=== PATIENT | male | born 1945 | race Caucasian/White ===

== ENCOUNTER → 2019-11-27 | Outpatient (CLI) | payer BC, MEDICARE, OTHER ==
[~2019-11-27] MED LIST: CATHETER FLUSH 10 ML SYR IV PRN; MULT-178 PO; REGADENOSON 0.4 MG/5 ML SYR (LEXISCAN) IV ONE
[2019-11-27] MEDS: CATHETER FLUSH 10 ML SYR IV PRN ×2 (07:57→09:25)
[2019-11-27 09:23] VITALS: BP 148/80
--- NOTE | 2019-11-27 15:31 | STRESS TEST ---
DATE OF SERVICE: 11/27/2019 RESTING AND POST REGADENOSON TECHNETIUM-99M TETROFOSMIN SPECT IMAGING ORDERING PHYSICIAN: Migdalia Hong APRN PRIMARY PHYSICIAN: Dr. Clay. OTHER PHYSICIAN: Dr. Spencer. CLINICAL DIAGNOSES: Coronary artery disease. Baseline images were carried out after injection of 10.2 mCi of technetium-99m Tetrofosmin. This was followed by 0.4 mg regadenoson and 29.3 mCi of technetium-99m Tetrofosmin for stress imaging. The electrocardiogram showed sinus rhythm at baseline. It did not change significantly with the regadenoson infusion. Isolated premature atrial contractions were seen. Review of images at rest and following stress indicates a small predominantly fixed basal inferior perfusion defect. Gated images show well preserved global left ventricular systolic function without distinct regional wall motion abnormality. Left ventricular ejection fraction is calculated to be 62%. Left ventricular end diastolic volume is 57 mL. TID is absent (1.01). CONCLUSIONS: 1. 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 2. Well preserved global left ventricular systolic function without distinct regional wall motion abnormality and with a calculated ejection fraction of 62%. Job ID: [id number] DocumentID: [id number] Dictated Date: 11/27/2019 15:23:12 Integration Developer Date: 11/27/2019 15:31:00 Dictated By: RICHY SPENCER MD, MA, FACP, FACC,
== END ==
LOC: CARD 11-23 07:34
PROVIDERS: ATTEND Nurse Practitioner Family
DX: I25.10 Atherosclerotic heart disease of native coronary artery without angina pectoris (principal); E78.5 Hyperlipidemia, unspecified; I65.29 Occlusion and stenosis of unspecified carotid artery
CPT/HCPCS: 78452; 93017; A9502

== ENCOUNTER 2020-03-04 10:55 | Outpatient (RCR) | payer MEDICARE, OTHER ==
[~2020-03-04 10:55] MED LIST changes: -CATHETER FLUSH 10 ML SYR IV PRN; -REGADENOSON 0.4 MG/5 ML SYR (LEXISCAN) IV ONE
[2020-03-11] MEDS ORDERED: LANS30CA PO (10:44)
[2020-03-11] MEDS ORDERED: METO-333 PO (10:44)
[2020-03-11] MEDS ORDERED: ASPI-479 PO (10:44)
[2020-03-11] MEDS ORDERED: CLOP75TA69 PO (10:44)
[2020-03-11] MEDS ORDERED: ATOR40TA70 PO (10:44)
[2020-03-11] MEDS ORDERED: RIVA20TA PO (10:44)
[2020-03-11] MEDS ORDERED: LORA-404 PO (10:44)
== END 2020-04-28 | disposition home or self-care (01) ==
LOC: ONC 10:55
PROVIDERS: ATTEND Radiology Radiation Oncology
DX: C15.5 Malignant neoplasm of lower third of esophagus (principal)
CPT/HCPCS: 77290; 77295; 77300; 77334 ×2; G0463; 77336; 77417; 99205

== ENCOUNTER → 2020-03-11 | Day surgery (SDC) | payer MEDICARE, OTHER ==
[2020-03-11] VITALS (8 sets, daily range): BP systolic 125–153; BP diastolic 82–92
[~2020-03-11] VITALS: Ht 175 cm; Wt 66.0 kg
[~2020-03-11] MED LIST changes: +ASPI-479 PO; +ATOR40TA70 PO; +CLOP75TA69 PO; +HEParin (CATH LAB) 2,000 ML IV ONE; +HEParin (CENTRAL IV FLUSH) 500 UNIT/5 ML SYR IV ONE; +HEParin (CENTRAL IV FLUSH) 500 UNIT/5 ML SYR ONE; +LANS30CA PO; +LIDOCAINE 1% INJ 20 ML 20 ML VIAL ONE; +LORA-404 PO; +METO-333 PO; +MIDAZOLAM 5 MG/5 ML (VERSED) VIAL ONE; +NS IV 1000 ML 1,000 ML IV SCH; +NS IV 1000 ML 1,000 ML ONE; +PATIENT MAY USE OWN MEDS, ALL PO SCH; +RIVA20TA PO; +fentaNYL INJECTION 100 MCG/2 ML AMP ONE
[2020-03-11 10:28] LABS: HEMOGLOBIN 10.8 g/dL (13.3-17.7); MEAN PLATELET VOLUME 9.2 fL (9.0-12.2); WHITE BLOOD COUNT 8.3 10^3/uL (4.3-11.0)
[2020-03-11 10:40] LABS: INR 1.1 (0.8-1.4); PROTHROMBIN TIME PATIENT 14.4 SEC (12.2-14.7)
[2020-03-11 10:49] LABS: ALANINE AMINOTRANSFERASE 15 U/L (0-55); ALBUMIN 3.7 GM/DL (3.2-4.5); ALKALINE PHOSPHATASE 158 U/L (40-136); BILIRUBIN,TOTAL 0.3 MG/DL (0.1-1.0); BUN/CREATININE RATIO 18; CALCIUM 9.2 MG/DL (8.5-10.1); CARBON DIOXIDE 21 MMOL/L (21-32); CHLORIDE 104 MMOL/L (98-107); CHOLESTEROL 201 MG/DL (< 200); CREATININE SERUM 0.73 MG/DL (0.60-1.30); GFR ESTIMATED > 60; GLUCOSE 101 MG/DL (70-105); HDL CHOLESTEROL 58 MG/DL (40-60); POTASSIUM 3.8 MMOL/L (3.6-5.0); SODIUM 138 MMOL/L (135-145); TOTAL PROTEIN 6.5 GM/DL (6.4-8.2); TRIGLYCERIDES 200 MG/DL (<150); VLDL CHOLESTEROL 40 MG/DL (5-40)
--- NOTE | 2020-03-11 13:40 | Cardiac Procedure Note-CS/ASA ---
Pre-Procedure Note Pre-Op Procedure Note H&P Reviewed The H&P was reviewed, patient examined and no changes noted. Date H&P Reviewed: Mar 11, 2020 Time H&P Reviewed: 12:30 Conscious Sedation Pre-Proced Time 12:30 ASA Score 3 For ASA 3 and 4: Consider anesthesia and medical clearance. Also, for patients with a history of failed moderate sedation consider anesthesia. Airway Lungs Heart ASA score ASA 1: a normal healthy patient ASA 2: a patient with a mild systemic disease (mid diabetes, controlled hypertension, obesity ASA 3: a patient with a severe systemic disease that limits activity (angina, COPD, prior Myocardial infarction) ASA 4: a patient with an incapacitating disease that is a constant threat to life (CHF, renal failure) ASA 5: a moribund patient not expected to survive 24 hrs. (ruptured aneurysm) ASA 6: a declared brain- patient whose organs are being harvested. For emergent operations, add the letter E after the classification Mallampati Classification Grade 2 Sedation Plan Analgesia, Amnesia, Plan communicated to team members, Discussed options with patient/fam, Discussed risks with patient/fam The patient is an appropriate candidate to undergo the planned procedure, sedation, and anesthesia. The patient immediately re-assessed prior to indication. RICHY SPENCER MD FACP [facility]AC [facility] Mar 11, 2020 13:40
--- NOTE | 2020-03-11 13:46 | Discharge Inst-Cardiology ---
Discharge Inst-Cardiac Discharge Medications Continued Medications: Aspirin (Adult Low Dose Aspirin EC) 81 Mg Tablet.dr 81 MG PO DAILY, TAB Atorvastatin Calcium (Atorvastatin Calcium) 40 Mg Tablet 40 MG PO UD, TAB Lansoprazole (Lansoprazole) 30 Mg Capsule.dr 30 MG PO DAILY, CAP Lorazepam (Ativan) 0.5 Mg Tablet 0.5 MG PO HS PRN for ANXIETY, TAB Metoprolol Tartrate (Metoprolol Tartrate) 25 Mg Tablet 12.5 MG PO BID, TAB Rivaroxaban (Xarelto) 20 Mg Tablet 20 MG PO DAILY, TAB Discontinued Medications: Clopidogrel Bisulfate (Plavix) 75 Mg Tablet 75 MG PO DAILY, TAB RICHY SPENCER MD FACP [facility] Mar 11, 2020 13:46
--- NOTE | 2020-03-11 13:46 | Discharge Inst-Post CATH ---
Discharge Inst-CATH/EP Post Cardiac Cath/EP D/C Inst Follow Up/Plan f/u with Dr Junior in 2 weeks ACTIVITY * Go Home directly and rest. * Limit activity of the leg (or wrist if it was used) for 7 days including aerobics, swimming, jogging, bicycling, etc. * Restrict stair-climbing for 7 days if possible, if not, climb up with your n on-cath leg, then bring together on the same step. * Avoid lifting, pushing, pulling or excessive movement of the affected ex tremity for 7 days. * Customary sexual activity may be resumed after 2 days-use caution not to use a position that strains or causes pain to the affected extremity. * No driving for 24 hours. * NO SMOKING. * Avoid straining for bowel movements for 7 days. * Gentle walking on level ground is allowed. * Returning to work will depend on the type of procedure and the results. Your doctor will discuss this with you. CALL YOUR DOCTOR FOR ANY OF THE FOLLOWING: *If bleeding from the puncture site occurs- Apply gentle pressure to site with clean cloth and call your doctor or EMS. * If a knot or lump forms under the skin, increases in size, or causes pain. * If bruising appears to be worsening or moving further down your leg instead of disappearing. * Temperature above 101 F. CARE OF YOUR GROIN INCISION; * Bruising or purple discoloration of the skin near the puncture site is common. * You may shower only, no bathtub bathing for 5 days. Be careful to avoid slipping as your leg may feel stiff. * If a closure device was used on your femoral artery, please see the attached guide regarding care of the device and your leg. * Leave dressing on FOR 24 hours. CARE OF YOUR WRIST INCISION; * Bruising or purple discoloration of the skin near the puncture site is common. * You may shower. * DO NOT submerge wrist. * Leave dressing on FOR 24 hours. RICHY JUNIOR MD [facility] Mar 11, 2020 13:46
--- NOTE | 2020-03-11 14:21 | CARDIAC CATHETERIZATION ---
DATE OF SERVICE: 03/11/2020 CARDIAC CATHETERIZATION REPORT The patient is a 74-year-old man who recently had a hospitalization in [place], [place] with a cardiorespiratory arrest. He has since been diagnosed with deep venous thrombosis and pulmonary embolism as well, whether he had a primary cardiac event was unclear. Cardiac catheterization was advised, given his history of coronary artery disease and coronary artery bypass surgery. He initially refused, but then agreed. This was carried out today after he provided an informed consent. DESCRIPTION OF PROCEDURE: He was brought to the cardiac catheterization laboratory in a fasting state. Both groins were prepared and draped in the usual sterile fashion. Lidocaine 1% was used for local anesthesia. We used the right femoral artery to advance a 5-[place] sheath using the Seldinger technique. Subsequently, wire advancement was somewhat difficult in the right iliac artery and dye injection through the sheath indicated that there was a small, localized, non-flow limiting dissection just cephalic to the tip of the sheath. Therefore, we did not attempt further use of this site and used the left femoral artery to introduce a 5-[place] sheath using the Seldinger technique. We used a 5-[place] JL4 catheter for left coronary angiography and 5-[place] JR4 catheter for right coronary angiography and for angiography of the aortocoronary graft to the posterior descending artery and for angiography of the left internal mammary artery graft to the left anterior descending. We used a 5-[place] pigtail catheter to carry out left heart catheterization, left ventricular angiography. We pulled back the pigtail catheter and then positioned it in the lower abdominal aorta and abdominal aortic angiography was performed with runoff. This was to make sure that there was no significant flow-limiting dissection within the right iliac or femoral arteries. None was found. We removed the pigtail catheter. We carried out angiography of the left femoral artery through the sheath and Mynx was used to achieve hemostasis following sheath removal. On the right side, manual pressure was used to achieve venous hemostasis following sheath removal. He tolerated the procedure well. HEMODYNAMICS: Left ventricular end-diastolic pressure following coronary angiography was 7 mmHg. There was no significant pressure gradient on pullback across the aortic valve. Ascending aortic pressure was 102/63 with a mean of 76 mmHg. CORONARY ANGIOGRAPHY: Left main coronary artery is free of significant disease. Left anterior descending artery has 70% proximal stenosis. Left circumflex artery is small and nondominant and exhibits 50% to 60% ostial stenosis. Right coronary artery is large and dominant and had 70% distal stenosis prior to the origin of the posterior descending branch. The posterior descending branch of the right coronary artery also has 70% proximal stenosis. Angiography of the aortocoronary grafts. A single aortocoronary graft is seen that goes to the mid portion of the posterior descending branch of the right coronary artery. The graft is intact and free of significant disease. LEFT INTERNAL MAMMARY ARTERY GRAFT ANGIOGRAPHY: Left internal mammary artery graft goes to the distal left anterior descending. It is patent and free of significant disease. LEFT VENTRICULAR ANGIOGRAPHY: Left ventricular angiography was carried out to the right anterior oblique projection. Global left ventricular systolic function normal. No regional wall motion abnormalities seen. Left ventricular ejection fraction is approximately 60%. ABDOMINAL AORTIC ANGIOGRAPHY: Lower abdominal aortic angiography was carried out to make sure that the iliofemoral arterial circulation was intact on both sides. This was found to be the case. No significant stenosis or flow limitation was seen in the iliac arteries or the proximal portion of the femoral arteries on either side. No significant abdominal aortic aneurysm or stenoses. Renal arteries are patent. CONCLUSIONS: 1. Coronary artery disease primarily consisting of 70% proximal stenosis, left anterior descending, 70% distal stenosis of the right coronary, 70% proximal stenosis of the posterior descending branch of the right coronary. 2. Patent left internal mammary artery graft to the left anterior descending. 3. Patent aortocoronary graft to the posterior descending branch of the right coronary. 4. Normal left ventricular end-diastolic pressure. 5. Normal global left ventricular systolic function with an ejection fraction approximately 60%. DISCUSSION AND RECOMMENDATIONS: Based on the results of the study, it appears appropriate to continue a conservative approach. His recent cardiorespiratory arrest appears to have primarily been respiratory due to pulmonary embolism. Cardiac status appears to be stable. Job ID: [id number] DocumentID: [id number] Dictated Date: 03/11/2020 13:56:07 Bookmobile Librarian Date: 03/11/2020 14:20:54 Dictated By: RICHY SPENCER MD, MA, FACP, FACC, MTDD
--- NOTE | 2020-03-11 16:39 | NUR ---
DISCHARGE INSTRUCTIONS GIVEN, VERBAL AND PRINTED TO BOTH ET PATIENT. BOTH VERBALIZE UNDERSTANDING. BOTH UNDERSTAND PLAVIX WILL NO LONGER BE A HOME MED.
--- NOTE | 2020-03-11 17:15 | NUR ---
AMBULATES IN HALLS WITH RN, USES BATHROOM TO VOID. THEN AFTER SITE CHECK, BOTH SITES ARE UNCHNAGED. PT SELF DRESSES IN STREET CLOTHES. AT THIS TIME PORT FLUSHED WITH NACL ET HEPARIN FLUSH 500 UNITS. SITES REMAIN UNCHNAGED. PT PULLS UP PANTS ET INTO W/C. 1730 TO WAITING PRIVATE CAR TO BE DRIVEN HOME BY .
--- NOTE | 2020-03-11 17:25 | NUR ---
LEFT CHEST GROSHONG WAS DEACCESSED PRIOR TO FLUSHING WITH NACL ET HEPARIN FLUSH.
== END ==
LOC: CATH 12:00
PROVIDERS: ATTEND Internal Medicine Cardiovascular Disease
DX: I25.10 Atherosclerotic heart disease of native coronary artery without angina pectoris (principal); I82.409 Acute embolism and thrombosis of unspecified deep veins of unspecified lower extremity; I26.99 Other pulmonary embolism without acute cor pulmonale; E78.5 Hyperlipidemia, unspecified; I65.23 Occlusion and stenosis of bilateral carotid arteries; Z79.899 Other long term (current) drug therapy; Z79.82 Long term (current) use of aspirin; Z87.891 Personal history of nicotine dependence; Z80.9 Family history of malignant neoplasm, unspecified; Z83.3 Family history of diabetes mellitus
CPT/HCPCS: 75625; 80053; 80061; 85027; 85610; 85730; 87081; 93459; C1760; C1769; C1894; 36415

== ENCOUNTER → 2020-06-25 | Outpatient (CLI) | payer MEDICARE, OTHER ==
[~2020-06-25] MED LIST changes: -HEParin (CATH LAB) 2,000 ML IV ONE; -HEParin (CENTRAL IV FLUSH) 500 UNIT/5 ML SYR IV ONE; -HEParin (CENTRAL IV FLUSH) 500 UNIT/5 ML SYR ONE; -LIDOCAINE 1% INJ 20 ML 20 ML VIAL ONE; -MIDAZOLAM 5 MG/5 ML (VERSED) VIAL ONE; -NS IV 1000 ML 1,000 ML IV SCH; -NS IV 1000 ML 1,000 ML ONE; -PATIENT MAY USE OWN MEDS, ALL PO SCH; -fentaNYL INJECTION 100 MCG/2 ML AMP ONE
== END ==
LOC: CARD 08:30
PROVIDERS: ATTEND Nurse Practitioner Family
DX: I34.0 Nonrheumatic mitral (valve) insufficiency (principal); Z86.711 Personal history of pulmonary embolism
CPT/HCPCS: 93306

== ENCOUNTER → 2020-11-07 | Outpatient (CLI) | payer MEDICARE, OTHER | LOC: CARD 08:17 | DX: Z51.11 Encounter for antineoplastic chemotherapy (principal); C15.5 Malignant neoplasm of lower third of esophagus; I51.7 Cardiomegaly; I34.0 Nonrheumatic mitral (valve) insufficiency | CPT/HCPCS: 93306 ==

== ENCOUNTER → 2021-03-13 | Outpatient (CLI) | payer MEDICARE, OTHER | LOC: CARD 10:59 | PROVIDERS: ATTEND Internal Medicine Medical Oncology | DX: C15.5 Malignant neoplasm of lower third of esophagus (principal); I35.8 Other nonrheumatic aortic valve disorders | CPT/HCPCS: 93306 ==

== ENCOUNTER → 2021-07-03 | Outpatient (CLI) | payer MEDICARE, OTHER | LOC: CARD 12:00 | PROVIDERS: ATTEND Nurse Practitioner Family | DX: I25.10 Atherosclerotic heart disease of native coronary artery without angina pectoris (principal); I25.3 Aneurysm of heart | CPT/HCPCS: 93306 ==

== ENCOUNTER → 2021-11-18 | Outpatient (CLI) | payer MEDICARE, OTHER | LOC: CARD 08:26 | PROVIDERS: ATTEND Nurse Practitioner Family | DX: C15.5 Malignant neoplasm of lower third of esophagus (principal) | CPT/HCPCS: 93306 ==